=== PATIENT | male | born 1945 | race Caucasian/White ===

== ENCOUNTER → 2017-06-12 | Outpatient (CLI) | payer MEDICARE ==
[~2017-06-12] MED LIST: ADULT LOW DOSE81 MG; ADULT LOW DOSE81 MG PO; ADVIL100 M2; ALEVE220 MG PO; AMBEREN PO; AMBIEN 10 MG TA10 MG; AMBIEN 10 MG TA10 MG PO; AMOXIL 875 MG875 M1 PO; ANALGESIC325 MG PO; ASPIR 8181 MG PO; ASPIRIN325 PO; ASPIRIN81 M2; BENADRYL25 MG; BENADRYL25 MG PO; CARDIZEM CD 18180 M3 PO; CARDIZEM CD180 MG PO; CARDIZEM CD300 MG PO; CENTRUM TABLET1 TAB PO; CEPHALEXIN 500500 M2 PO; CLARITIN10 M2 PO; CLARITIN10 MG; CLARITIN10 MG PO; COLACE1 EAC1 PO; COLACE100 MG PO; COUMADIN 10MG T10 M1 PO; COUMADIN 5 MG TA5 M1 PO; COUMADIN7.5 MG PO; DILTIAZEM 24HR180 MG; DILTIAZEM 24HR180 MG PO; DILTIAZEM ER300 MG PO; ENOXAPARIN100 MG/11 SUBQ; FISH OIL500 M1 PO; FISHOIL PO; FLECAINIDE ACE100 MG PO; FLECAINIDE ACE150 MG PO; FLONASE 0.05%50 MCG NASAL; FUROSEMIDE 20 M20 M1 PO; FUROSEMIDE 20 M20 MG PO; FUTURO RESTORI1 EACH MC; IBUPROFEN 200200 M1 PO; KAPIDEX OR; LASIX 20 MG TAB20 MG; LIPITOR10 MG PO; LOVAZA1000 MG; MIRALAX255 GM PO; MULTI-VITAMIN1 EAC2 PO; MULTI-VITAMIN1 EAC5; MULTIVITAMINS PO; MULTIVITAMINS1 EAC7 PO; PERCOCET 7.5-31 EACH PO; PREDNISONE 20 M20 M1 PO; PRILOSEC 20 MG20 MG PO; PROTONIX40 M2 PO; SEE ATTACHED SHEET.; SEROQUEL 50 MG50 M1 PO; SEROQUEL 50 MG50 MG; TAMBOCOR 100 M100 MG PO; ULTRAM 50MG TAB50 MG PO; VERAPAMIL HCL180 M1 PO; VITAMIN B-1100 M1 PO; VITAMIN B-1100 MG PO; XARELTO20 MG; ZIAC; ZIAC 2.5-6.251 EACH PO; ZIAC 2.5/6.252.5 M1; ZYRTEC 10 MG TA10 MG PO; [UNRECOGNIZED DRUG - OTHER]; [UNRECOGNIZED DRUG - OTHER] PO
== END ==
LOC: M.LAB 04:13
DX: Z01.818 Encounter for other preprocedural examination (principal); I10 Essential (primary) hypertension; K21.9 Gastro-esophageal reflux disease without esophagitis

== ENCOUNTER 2017-11-12 23:10 | Emergency (ER) | payer MEDICARE ==
[~2017-11-12] VITALS: Ht 167.6 cm; Wt 95.3 kg
[~2017-11-12 23:10] MED LIST changes: -XARELTO20 MG
[2017-11-12] MEDS ORDERED: XARELTO20 MG (23:35)
[2017-11-12 23:45] LABS: ABSOLUTE BASOPHILS 0.1 thou/uL (0.0-0.2); ABSOLUTE EOSINOPHILS 0.1 thou/uL (0.0-0.7); ABSOLUTE LYMPHOCYTES 1.5 thou/uL (0.8-5.3); ABSOLUTE MONOCYTES 0.7 thou/uL (0.0-1.2); ABSOLUTE NEUTROPHILS 3.8 thou/uL (1.6-8.1); BASOPHILS 1.1 %; EOSINOPHILS 0.9 %; HEMATOCRIT 33.6 % (42.0-52.0); HEMOGLOBIN 11.9 gm/dL (14.0-18.0); LYMPHOCYTES 24.8 %; MCH 34.1 pg (26.0-34.0); MCHC 35.3 g/dL (28.0-37.0); MCV 96.5 fL (80.0-100.0); MONOCYTES 11.6 %; MPV 6.4 fl. (7.2-11.1); NUCLEATED RBCS 0 /100WBC; PLATELET COUNT* 238 thou/uL (150-400); POLYS 61.6 %; RBC 3.49 mil/uL (4.50-6.00); RDW-CV 13.4 % (10.5-14.5); WBC 6.2 thou/uL (4.0-11.0)
[2017-11-12 23:55] LABS: CALCIUM 9.3 mg/dL (8.5-10.1); CREATININE 0.9 mg/dL (0.6-1.3); POTASSIUM 3.7 mmol/L (3.5-5.1)
[2017-11-12 23:59] LABS: ALBUMIN 3.6 g/dL (3.4-5.0); TOTAL BILIRUBIN 0.2 mg/dL (<0.1-1.0); TOTAL PROTEIN 7.1 g/dL (6.4-8.2)
[2017-11-13] MEDS ORDERED: ULTRAM 50MG TAB50 MG PO (00:39)
[2017-11-13 01:05] VITALS: BP 146/84
== END 2017-11-13 01:08 | disposition home or self-care (01) ==
LOC: M.ERS 23:10
PROVIDERS: Emergency Medicine
DX: G89.18 Other acute postprocedural pain (principal); M25.561 Pain in right knee; I10 Essential (primary) hypertension; I48.91 Unspecified atrial fibrillation; Z87.891 Personal history of nicotine dependence; Z88.5 Allergy status to narcotic agent; Z88.6 Allergy status to analgesic agent; Z88.8 Allergy status to other drugs, medicaments and biological substances; Z90.49 Acquired absence of other specified parts of digestive tract

== ENCOUNTER 2019-02-04 11:54 | Emergency (ER) | payer MEDICARE ==
[~2019-02-04] VITALS: Ht 167.6 cm; Wt 95.3 kg
[~2019-02-04 11:54] MED LIST changes: +XARELTO20 MG
[2019-02-04] MEDS ORDERED: FLECAINIDE ACE150 MG PO (12:03)
[2019-02-04] MEDS ORDERED: HYDROCHLOROTH12.5 M1 PO (12:04)
[2019-02-04] MEDS ORDERED: ALTACE10 MG PO (12:04)
[2019-02-04 13:41] VITALS: BP 138/64
== END 2019-02-04 13:42 | disposition home or self-care (01) ==
LOC: M.ERS 11:54
DX: T78.49XA Other allergy, initial encounter (principal); I10 Essential (primary) hypertension; I48.91 Unspecified atrial fibrillation; Z85.828 Personal history of other malignant neoplasm of skin; Z90.49 Acquired absence of other specified parts of digestive tract; Z88.5 Allergy status to narcotic agent; Z87.891 Personal history of nicotine dependence; Y92.89 Other specified places as the place of occurrence of the external cause